=== PATIENT | female | born 1960 | race Caucasian/White ===

== ENCOUNTER 2021-02-27 07:37 | Day surgery (SDC) | payer BC ==
[~2021-02-27] VITALS: Ht 177.8 cm; Wt 80.6 kg
[2021-02-27 08:30] VITALS: BP 126/86
[2021-02-27] MEDS ORDERED: METO50TA7 PO (09:02)
[2021-02-27] MEDS ORDERED: PANT-47 PO (09:02)
[2021-02-27] MEDS ORDERED: DEXA4TAB68 PO (09:02)
[2021-02-27] MEDS ORDERED: PROC10TA10 PO (09:02)
[2021-02-27] MEDS ORDERED: OLAN2.5T3 PO (09:02)
[2021-02-27] MEDS ORDERED: FOLIC ACID PO (09:02)
[2021-02-27] MEDS ORDERED: ROSU5TAB12 PO (09:02)
[2021-02-27] MEDS ORDERED: IBUP-2697 PO (09:02)
[2021-02-27] MEDS ORDERED: PROM25TA14 PO (09:02)
[2021-02-27] MEDS ORDERED: TOPI25TA49 PO (09:02)
[2021-02-27] MEDS ORDERED: KEP500T PO (09:02)
[2021-02-27] MEDS ORDERED: ASPI-1265 PO (09:12)
[2021-02-27] MEDS ORDERED: CHOL1CRY2 PO (09:12)
[2021-02-27] MEDS ORDERED: CETI10TA18 PO (09:12)
[2021-02-27] MEDS ORDERED: DOCU-148 PO (09:12)
[2021-02-27] MEDS ORDERED: OXYC-145 PO (09:12)
[2021-02-27] MEDS ORDERED: ONDA4TAB12 PO (09:12)
[2021-02-27] MEDS ORDERED: CYAN-51 PO (09:12)
[2021-02-27] MEDS ORDERED: ACET-812 PO (09:12)
[2021-02-27] MEDS ORDERED: ALPR-624 PO (09:12)
[2021-02-27] MEDS ORDERED: LEVO125C4 PO (09:12)
[2021-02-27] MEDS ORDERED: heparin sodium, porcine/PF 100unit/ml 5ML syringe ONE (10:34)
[2021-02-27] MEDS ORDERED: LIDOcaine 1%/PF 5ML 10 MG/ML VIAL ONE (10:34)
[2021-02-27] MEDS ORDERED: midazolam 1 mg/ML 2ml injection ONE (10:34)
[2021-02-27] MEDS ORDERED: fentaNYL/PF 50MCG/1 ML 2ML syringe ONE (10:34)
[2021-02-27 11:30] VITALS: BP 138/68
[2021-02-27 11:45] VITALS: BP 134/79
[2021-02-27 12:00] VITALS: BP 140/89
[2021-02-27 12:15] VITALS: BP 139/85
== END 2021-02-27 12:35 | disposition home or self-care (01) ==
LOC: SSTAY O 07:37
PROVIDERS: ATTEND Radiology Vascular & Interventional Radiology
DX: C34.12 Malignant neoplasm of upper lobe, left bronchus or lung (principal); I10 Essential (primary) hypertension; E03.9 Hypothyroidism, unspecified; Z79.899 Other long term (current) drug therapy; Z79.82 Long term (current) use of aspirin; Z88.5 Allergy status to narcotic agent; Z98.890 Other specified postprocedural states; Z90.710 Acquired absence of both cervix and uterus
CPT/HCPCS: 36561; 76937; 77001; 99152; C1769; C1788; C1894; J1642; J2250; J3010; 99153

== ENCOUNTER 2021-03-18 08:22 | Day surgery (SDC) | payer BC ==
[~2021-03-18] VITALS: Ht 175.3 cm; Wt 81.8 kg
[~2021-03-18 08:22] MED LIST: ACET-812 PO; ALPR-624 PO; ASPI-1265 PO; CETI10TA18 PO; CHOL1CRY2 PO; CYAN-51 PO; DEXA4TAB68 PO; DOCU-148 PO; FOLIC ACID PO; IBUP-2697 PO; KEP500T PO; LEVO125C4 PO; METO50TA7 PO; OLAN2.5T3 PO; ONDA4TAB12 PO; OXYC-145 PO; PANT-47 PO; PROC10TA10 PO; PROM25TA14 PO; ROSU5TAB12 PO; TOPI25TA49 PO
[2021-03-18 08:37] VITALS: BP 119/80
[2021-03-18] MEDS ORDERED: fentaNYL/PF 50MCG/1 ML 2ML syringe ONE (08:59)
[2021-03-18] MEDS ORDERED: MIDAZolam 1 MG/ML 5ML VIAL ONE (08:59)
[2021-03-18 11:27] VITALS: BP 114/75
[2021-03-18 11:37] VITALS: BP 120/77
[2021-03-18 11:47] VITALS: BP 120/74
[2021-03-18 11:57] VITALS: BP 122/75
== END 2021-03-18 12:00 | disposition home or self-care (01) ==
LOC: GI LAB 08:22
PROVIDERS: ATTEND Internal Medicine Gastroenterology
DX: Z12.11 Encounter for screening for malignant neoplasm of colon (principal); D12.8 Benign neoplasm of rectum; Z85.118 Personal history of other malignant neoplasm of bronchus and lung; Z85.830 Personal history of malignant neoplasm of bone; Z98.890 Other specified postprocedural states; Z88.5 Allergy status to narcotic agent; Z85.89 Personal history of malignant neoplasm of other organs and systems; Z79.899 Other long term (current) drug therapy
CPT/HCPCS: 45385; 99152; 99153; C1773; J2250; J3010; J7040; A4620